=== PATIENT | male | born 1980 | race American Indian/Alaskan Native ===

== ENCOUNTER 2016-11-03 05:46 | Emergency (ER) | payer MEDICAID ==
[~2016-11-03] VITALS: Ht 175.3 cm; Wt 77.1 kg
[2016-11-03 06:06] VITALS: BP 128/95
[2016-11-03] MEDS ORDERED: TETRACAINE HCL 0.5% OPTH(EYE) SOLN 4ML RIGHTEYE ONE (06:45)
[2016-11-03] MEDS ORDERED: FLUORESCEIN SOD 1 MG TEST STRIP RIGHTEYE ONE (06:45)
== END 2016-11-03 07:14 | disposition home or self-care (01) ==
LOC: ER 05:47
DX: T15.91XA Foreign body on external eye, part unspecified, right eye, initial encounter (principal); X58.XXXA Exposure to other specified factors, initial encounter; Y93.89 Activity, other specified; Y99.8 Other external cause status; Y92.89 Other specified places as the place of occurrence of the external cause